=== PATIENT | male | born 1960 | race Caucasian/White ===

== ENCOUNTER 2018-06-26 15:45 | Emergency (ER) | payer OTHER ==
[2018-06-26 15:45] VITALS: BMI 28.1
--- NOTE | 2018-06-26 16:28 | C.PDOC ---
History Of Present Illness <Nelsy Frye - Last Filed: 06/26/18 18:44> <Alicia Witt - Last Filed: 06/26/18 19:01> PGY-[address] Frye. Patient is 57 year old male with PMHx of HTN, DM, and GERD who presents to ED complaining of nausea, vomiting and diarrhea that began this morning after eating breakfast. Abdominal pain is described as acid in the periumbilical region and radiates upward to the throat and feels like his usual GERD. There has been 3 episodes of vomiting today, non-bloody. Patient is tolerating water, but hasn't been able to tolerate solids. Associated symptoms include mild generalized weakness. OTC Xantac provided moderate improvement of symptoms. Patient states he is prescribed Protonix 20mg, which he stopped taking because it does not help his symptoms. Patient Denies diarrhea, fever, chills, dizziness , chest pain, and shortness of breath. (Alicia Witt) <Nelsy Frye - Last Filed: 06/26/18 18:44> <Alicia Witt - Last Filed: 06/26/18 19:01> Time Seen by Provider: 06/26/18 16:08 Chief Complaint (Nursing): Abdominal Pain Past Medical History - Social History Hx Alcohol Use: No Hx Substance Use: No - Immunization History Hx Tetanus Toxoid Vaccination: No Hx Influenza Vaccination: No Hx Pneumococcal Vaccination: No <Nelsy Frye - Last Filed: 06/26/18 18:44> Family History: States: Unknown Family Hx <Alicia Witt - Last Filed: 06/26/18 19:01> Vital Signs: Last Vital Signs Temp 98.4 F 06/26/18 18:16 Pulse 86 06/26/18 18:16 Resp 18 06/26/18 18:16 BP 134/76 06/26/18 18:16 Pulse Ox 99 06/26/18 18:44 Review Of Systems Constitutional: Negative for: Fever, Chills, Sweats Cardiovascular: Negative for: Chest Pain, Palpitations, Orthopnea Respiratory: Negative for: Cough, Shortness of Breath, Hemoptysis Gastrointestinal: Positive for: Nausea, Vomiting, Abdominal Pain. Negative for : Diarrhea, Melena, Hematochezia, Hematemesis Genitourinary: Negative for: Dysuria, Frequency Neurological: Negative for: Weakness, Numbness, Incoordination <WittТатьянаAlicia P - Last Filed: 06/26/18 19:01> Physical Exam - Physical Exam Appears: Well, No Acute Distress Skin: Normal Color, Warm, Dry Head: Atraumatic, Normacephalic Eye(s): bilateral: Normal Inspection, PERRL, EOMI Throat: Normal Neck: Normal ROM Chest: Symmetrical Cardiovascular: Rhythm Regular Respiratory: Normal Breath Sounds, No Rales, No Rhonchi, No Stridor Gastrointestinal/Abdominal: Bowel Sounds, Soft, Tenderness (minimal tenderness RUQ, LUQ and epigastrium), No Distention, No Guarding, No Rebound Extremity: Normal ROM, No Tenderness, No Pedal Edema Neurological/Psych: Oriented x3, Normal Speech, Normal Cranial Nerves (grossly) <Alicia Witt P - Last Filed: 06/26/18 19:01> ED Course And Treatment - Laboratory Results Result Diagrams: 06/26/18 16:45 06/26/18 18:04 ECG: Interpreted By Me, Viewed By Me (NSR 80 BPM, LEFT AXIS DEVIATION, NO ACUTE ST/T WAVE CHANGES) ECG Interpretation: No Acute Changes O2 Sat by Pulse Oximetry: 99 <Nelsy Frye - Last Filed: 06/26/18 18:44> - Laboratory Results Result Diagrams: 06/26/18 16:45 06/26/18 18:04 Pulse Ox Interpretation: Normal Progress Note: Patient feels much better. States he is hungry. Reevaluation Time: 18:30 Reassessment Condition: Improved <Alicia Witt P - Last Filed: 06/26/18 19:01> Medical Decision Making <Nelsy Frye A - Last Filed: 06/26/18 18:44> <Alicia Witt P - Last Filed: 06/26/18 19:01> Medical Decision Making: Plan: -CBC, CMP -lipase -UA -Protonix 40mg -IVF -EKG (Alicia Witt P) Disposition <Nelsy Frye - Last Filed: 06/26/18 18:44> - Disposition Disposition Time: 18:30 <Alicia Witt P - Last Filed: 06/26/18 19:01> - Disposition Referrals: [facility] [Outside] Disposition: HOME/ ROUTINE Condition: STABLE Additional Instructions: FOLLOW UP WITH YOUR DOCTOR IN 1-2 DAYS, AND WITH GASTROENTEROLOGY WITHIN 1 WEEK USE MEDICATION DAILY RETURN TO EMERGENCY ROOM IF SYMPTOMS WORSEN SEGUIMIENTO CON ROMERO MDICO EN 1-2 RENEE, Y CON GASTROENTEROLOGA DENTRO DE 1 SEMANA USE MEDICAMENTOS DIARIAMENTE REGRESE AL RALPH DE EMERGENCIA SI LOS SNTOMAS EMPEORAN Prescriptions: Pantoprazole Sodium [Protonix] 40 mg PO DAILY #30 ect Instructions: Acid Reflux (Gastroesophageal Reflux Disease), Adult (DC) Forms: General Discharge Instructions, [facility] (Lao) Print Language: OMANI - Clinical Impression Clinical Impression: Gastro-esophageal reflux, Elevated blood sugar
[2018-06-26 16:49] LABS: BASO # 0.1 K/uL (0.0-0.2); BASO % 0.6 % (0.0-2.0); EOS % 0.3 % (0.0-4.0); LYMPH # 1.3 K/uL (1.0-4.3); LYMPH % 14.4 % (20.0-40.0); MEAN CELL VOLUME 88.9 fL (80.0-94.0); MEAN CORPUSCULAR HEMOGLOBIN 30.6 pg (27.0-31.0); MEAN CORPUSCULAR HGB CONC 34.5 g/dL (33.0-37.0); MEAN PLATELET VOLUME 10.1 fL (7.2-11.7); MONO # 0.4 K/uL (0.0-0.8); MONO % 3.9 % (0.0-10.0); NEUT # 7.5 K/uL (1.8-7.0); NEUT % 80.8 % (50.0-75.0); RBC 4.57 Mil/uL (4.40-5.90); RED CELL DISTRIBUTION WIDTH 14.2 % (11.5-14.5); WHITE BLOOD COUNT 9.3 K/uL (4.8-10.8)
[2018-06-26 17:13] LABS: SQUAMOUS EPITHIAL 3 /hpf (0-5); URINE BILIRUBIN NEGATIVE (NEGATIVE); URINE BLOOD NEGATIVE (NEGATIVE); URINE CLARITY Clear (Clear); URINE COLOR Yellow (YELLOW); URINE GLUCOSE (UA) 3+ mg/dL (Normal); URINE LEUKOCYTE ESTERASE NEG Leu/uL (Negative); URINE PROTEIN 2+ mg/dL (NEGATIVE); URINE UROBILINOGEN NORMAL mg/dL (0.2-1.0)
[2018-06-26] MEDS ORDERED: Sodium Chloride 0.9% 1,000 ML IV ONE (17:24)
[2018-06-26 17:25] LABS: ALB/GLOB RATIO 1.7 (1.0-2.1); ALBUMIN 4.5 g/dL (3.5-5.0); ALT/SGPT 28 U/L (21-72); AST/SGOT 17 U/L (17-59); BLOOD UREA NITROGEN 24 mg/dL (9-20); CALCIUM 9.7 mg/dl (8.6-10.4); GFR NON-AFRICAN AMERICAN > 60; LIPASE 62 U/L (23-300)
[2018-06-26] MEDS ORDERED: (Novolin R) Insulin Human Regular 100 units/ml vial IVP STA (17:25)
[2018-06-26] MEDS ORDERED: (Novolin R) Insulin Human Regular 100 units/ml vial ONE (17:33)
[2018-06-26] MEDS ORDERED: Sodium Chloride 0.9% 1,000 ML ONE (17:33)
[2018-06-26 18:16] VITALS: BP 134/76; PULSE 86; RESP 18; TEMP 98.4
[2018-06-26 18:45] VITALS: O2SAT 99
--- NOTE | 2018-06-28 22:48 | CARD ---
APPROVED REPORT Date of service: 06/26/2018 EKG Measurement Heart [id number] <Conclusion> Normal sinus rhythm Normal ECG
== END 2018-06-26 19:05 | disposition home or self-care (01) ==
LOC: C.ER 15:45
DX: K21.9 Gastro-esophageal reflux disease without esophagitis (principal); E11.65 Type 2 diabetes mellitus with hyperglycemia; I10 Essential (primary) hypertension
CPT/HCPCS: 80053; 81001; 82948; 83690; 84132; 85025; 93005; 96361; 96374; 96375; 99285; C9113; J7030

== ENCOUNTER 2018-08-04 21:35 | Emergency (ER) | payer OTHER ==
[2018-08-04 21:35] VITALS: BMI 28.1
[2018-08-04 21:42] VITALS: BP 120/72; PULSE 78; TEMP 98.1; O2SAT 97
--- NOTE | 2018-08-04 22:00 | C.PDOC ---
History Of Present Illness 57 year old male presents to the ER with a complaint of intermittent pain to bilateral upper and lower extremities for the past few months that has worsened today. Patient describes the pain as a cramping pain and notes he has not taken any medication for it. Denies trauma, weakness, or numbness. Time Seen by Provider: 08/04/18 21:45 Chief Complaint (Nursing): Lower Extremity Problem/Injury History Per: Patient History/Exam Limitations: no limitations Onset/Duration Of Symptoms: Hrs Current Symptoms Are (Timing): Still Present Recent travel outside of the [place]: No Past Medical History Reviewed: Historical Data, Nursing Documentation, Vital Signs Vital Signs: Last Vital Signs Temp 98.1 F 08/04/18 21:37 Pulse 78 08/04/18 21:37 Resp 16 08/04/18 21:37 BP 120/72 08/04/18 21:37 Pulse Ox 97 08/04/18 21:37 - Medical History PMH: HTN Family History: States: Unknown Family Hx - Social History Hx Alcohol Use: No Hx Substance Use: No - Immunization History Hx Tetanus Toxoid Vaccination: No Hx Influenza Vaccination: No Hx Pneumococcal Vaccination: No Review Of Systems Musculoskeletal: Positive for: Arm Pain (Bilateral), Leg Pain (Bilateral) Neurological: Negative for: Weakness, Numbness Physical Exam - Physical Exam Appears: Non-toxic Skin: Normal Color, Warm, Dry Head: Atraumatic, Normacephalic Eye(s): bilateral: Normal Inspection Extremity: Normal ROM (x4), No Tenderness, No Calf Tenderness, Capillary Refill (<2 seconds), No Deformity, No Swelling Pulses: Left Radial: Normal, Right Radial: Normal, Left Dorsalis Pedis: Normal, Right Dorsalis Pedis: Normal Neurological/Psych: Oriented x3, Normal Speech, Normal Motor, Normal Sensation Gait: Steady ED Course And Treatment O2 Sat by Pulse Oximetry: 97 (Room air) Pulse Ox Interpretation: Normal Progress Note: Flexeril and toradol administered. Patient reports improvement of pain, he is ambulatory in the ER with steady gait, vitals are stable, will discharge home with Rx and instructions to follow up with PMD. Disposition Counseled Patient/Family Regarding: Diagnosis, Need For Followup - Disposition Referrals: [facility] [Outside] Disposition: HOME/ ROUTINE Disposition Time: 23:12 Condition: STABLE Additional Instructions: Sigue en clinica [place] las medicinas Regresa si peor Prescriptions: Methocarbamol [Robaxin-750] 750 mg PO HS #7 tablet traMADol [Ultram] 50 mg PO TID #12 tab Instructions: Neuropathic Pain, Muscle Spasms (DC) Forms: [facility] (Gabonese) Print Language: K[place]IL[place] - Clinical Impression Clinical Impression: Neuropathic pain, Muscle spasm - PA / FISH CHECKER / Resident Statement MD/DO has reviewed & agrees with the documentation as recorded. - Scribe Statement The provider has reviewed the documentation as recorded by the Scribbharat Cortés All medical record entries made by the Tiaraibbharat were at my direction and personally dictated by me. I have reviewed the chart and agree that the record accurately reflects my personal performance of the history, physical exam, medical decision making, and the department course for this patient. I have also personally directed, reviewed, and agree with the discharge instructions and disposition.
[2018-08-04 23:33] VITALS: RESP 20
== END 2018-08-04 23:32 | disposition home or self-care (01) ==
LOC: C.ER 21:35
DX: G62.9 Polyneuropathy, unspecified (principal); M62.838 Other muscle spasm
CPT/HCPCS: 96372; 99284; J1885